=== PATIENT | female | born 1955 | race Caucasian/White ===

== ENCOUNTER 2024-12-31 07:41 | Emergency (ER) | payer MEDICARE, SELFPAY ==
[2024-12-31] VITALS (14 sets, daily range): BP systolic 97–140; BP diastolic 58–86; PULSE 76–79; RESP 16–30; O2SAT 94–99
--- NOTE | ~2024-12-31 | XR_ITS ---
Examination: XR chest 2V Clinical History: chest pain, palpitations Comparison: None Technique: PA and Lateral Findings: Heart size enlarged. Elevated right hemidiaphragm, associated basilar atelectasis. Mild left basilar atelectasis. No acute bony abnormality. IMPRESSION: 1. No definite acute cardiopulmonary findings. 2. Bibasilar atelectasis, but early airspace opacity not excluded. Reviewed, dictated and finalized at location [facility]
--- NOTE | 2024-12-31 07:43 | ECG_ITS ---
Test Date: 2024-12-31 07:46:01 Measurements Intervals [place] Rate: 76 P: 48 WA: 155 QRS: 14 QRSD: 157 T: 173 QT: 441 QTc: 496 Interpretive Statements SINUS RHYTHM LEFT BUNDLE BRANCH BLOCK Electronically Signed On 12-31-2024 10:55:16 NURSE SITTER by Ronald Burks D.O
--- NOTE | 2024-12-31 08:07 | ED.CHESTPAIN ---
HPI - Chest Pain General Chief Complaint: Chest Pain Stated Complaint: chest pain Time Seen by Provider: 12/31/24 07:45 History of Present Illness HPI narrative: This is a 69-year-old female with history of CAD status post CABG 10 days ago at [facility] who presents to the ED from rehab for AFib. Per EMS, patient woke up this morning and felt like her heart was racing and Rehab checked her heart rate and was in the 160s to 170s. She was given additional dose of metoprolol there but it did not break prompting her to be sent here for further evaluation. At this time, patient reports that she does feel much better. She believes that as she was rolling through the doors to the ER that she converted back to normal. She has otherwise been doing well in the postop period. She did not get her morning amiodarone dose yet. Denies any new chest pain, shortness of breath, nausea vomiting. Related Data Home Medications ?Medication ?Instructions ?Recorded ?Confirmed ?Last Taken ?Type acetaminophen 500 mg capsule 1,000 mg PO Q6H PRN pain 12/29/24 12/29/24 12/29/24 09:45 History albuterol sulfate 90 mcg/actuation 2 inh inhalation Q4H PRN shortness 12/29/24 12/29/24 Unknown History aerosol inhaler of breath or wheezing amiodarone 400 mg tablet 400 mg PO Q24H 12/29/24 12/29/24 12/29/24 History apixaban 5 mg tablet 5 mg PO BID 12/29/24 12/29/24 12/29/24 History clopidogrel 75 mg tablet (Plavix) 75 mg PO DAILY 12/29/24 12/29/24 12/29/24 History fluticasone furoate 100 1 inh inhalation HS 12/29/24 12/29/24 12/28/24 21:20 History mcg-vilanterol 25 mcg/dose inhalation powder (Breo Ellipta) fluticasone propionate 50 2 spray intranasal DAILY PRN 12/29/24 12/29/24 Unknown History mcg/actuation nasal allergy symptoms spray,suspension (24 Hour Allergy Relief) furosemide 40 mg tablet (Lasix) 40 mg PO DAILY 12/29/24 12/29/24 12/29/24 History methocarbamol 500 mg tablet 500 mg PO TID 12/29/24 12/29/24 12/29/24 History metoprolol tartrate 37.5 mg tablet 37.5 mg PO BID 12/29/24 12/29/24 12/29/24 History multivitamin (Daily Multi-Vitamin 1 tablet PO DAILY 12/29/24 12/29/24 12/29/24 History tablet) oxycodone 5 mg tablet 5 mg PO Q6H 12/29/24 12/29/24 12/29/24 10:00 History pantoprazole 40 mg tablet,delayed 40 mg PO QAM 12/29/24 12/29/24 12/29/24 History release potassium chloride 20 mEq 40 meq PO DAILY 12/29/24 12/29/24 Unknown History tablet,extended release(part/cryst) (Klor-Con M) rosuvastatin 20 mg tablet (Crestor) 20 mg PO QPM 12/29/24 12/29/24 12/28/24 21:08 History sennosides 8.6 mg capsule (senna) 17.2 mg PO BID 12/29/24 12/29/24 12/29/24 History Allergies Allergy/AdvReac Type Severity Reaction Status Date / Time venom-wasp Allergy Severe Swelling Verified 12/31/24 07:50 morphine AdvReac Severe Unresponsiv Verified 12/31/24 07:50 e JOSEPHINE Inhibitors AdvReac Mild Cough Verified 12/31/24 07:50 Review of Systems Review of Systems: Gen.: Denies fevers or chills Eyes: Denies eye pain or visual change ENT: Denies congestion Respiratory: Denies shortness of breath or cough CV: As per HPI GI: Denies abdominal pain nausea, emesis or diarrhea denies burning, urgency, frequency or hematuria Musculoskeletal: Denies back pain or muscle pain Neuro: Denies numbness, tingling, weakness or focal weakness Skin: Denies rash Except as documented, all other systems reviewed and negative [facility] Social History Social History Smoking packs per day: 0.5 Smoking cigarettes per day: 10.0 Years smoked: 20 Smoking pack-years: 10.00 Smoking status: Former smoker Tobacco type: cigarettes Second hand tobacco smoke exposure: Yes Smoking end date: 02/16/94 Alcohol intake: former Substance use: never Substance use type: does not use Lack of Transportation: No Lack of Food: Never True Current Housing: I Have Housing Concerned About Future Housing: No Difficulty Paying Gas/Electric Bills: No Difficulty Paying for Meds: No Currently Unemployed: No Education: Associate Degree Difficulty w/ Childcare or Family Care: No Spiritual care concerns: No Exam Narrative: APPEARANCE: No acute distress, nontoxic, resting in bed EYES: EOMI HEENT: Normocephalic, atraumatic, OMM RESPIRATORY: No respiratory distress Clear to auscultation bilaterally with no rhonchi wheezing or rales. CARDIOVASCULAR: Regular rate and rhythm without murmurs rubs or gallops. Sternotomy incision clean/dry/intact. ABDOMINAL: Soft, nontender, nondistended, no rebound or guarding MUSCULOSKELETAl: Moves all extremities. No clubbing, cyanosis or edema. NEURO: Awake and alert. Following commands, speech normal, no focal deficits SKIN:: Warm, dry. No rashes lesions or abrasions PSYCHIATRIC: Normal affect/mood, Course Vital Signs Vital signs: Vital Signs Pulse Rate 78 12/31/24 07:44 Respiratory Rate 20 12/31/24 07:44 Blood Pressure 119/66 12/31/24 07:44 Pulse Oximetry 94 12/31/24 07:44 Oxygen Delivery Room Air 12/31/24 07:44 Pulse Rate 78 12/31/24 11:29 Respiratory Rate 16 12/31/24 11:29 Blood Pressure 117/63 12/31/24 11:29 Pulse Oximetry 96 12/31/24 11:29 Oxygen Delivery Room Air 12/31/24 07:44 MDM - Chest Pain MDM Narrative Medical decision making narrative: 69-year-old female Presenting for AFib and palpitations. On initial evaluation patient was in no acute distress afebrile, hemodynamic stable. Differentials include but are not limited to: ACS, AFib, CHF Exacerbation, COPD exacerbation, PE, PNA, PTX, bronchitis, viral syndrome Notable exam findings: Sternotomy incision clean/dry/intact, heart in normal sinus rhythm I personally reviewed the patient's lab result. Notable lab findings: Leukocytosis at 17 which is stable from yesterday. Troponin elevated at 0.07 for Chest x-ray showed bibasilar atelectasis. I personally reviewed the patient's EKGs: 12/31/2024 at 7:46 a.m: Normal sinus rhythm rate of 76, left bundle-branch block, does not meet Sgarbossa criteria for ST-elevation. Given patient's recent cardiac surgery in elevated troponin at this time, I did discuss the case with Dr. Raymundo, cardiothoracic surgery at [place] who performed the patient's surgery, he felt comfortable with the patient's troponin at its current level especially given that she is not having any chest pain at this time. Patient remained in normal sinus rhythm. She was given her home dose of amiodarone as it was due this morning anyway. Patient was advised follow up with her cardiothoracic surgeon as scheduled. Patient was agreeable to this plan. Given strict return precautions. Medical Records Data Attestation: I reviewed the patient's medical records. Lab Data Attestation: I reviewed the patient's lab results. 12/31/24 07:57 12/31/24 07:57 Labs: Lab Results 12/31/24 Range/Units 07:57 WBC 17.5 H (4.5-10.0) K/mm3 RBC 3.00 L (4.2-5.4) M/mm3 Hgb 9.1 L (12.0-15.0) g/dL Hct 30.0 L (37.0-47.0) % MCV 100.0 (80-100) fl MCH 30.3 (26-34) pg MCHC 30.3 L (32-36) g/dl RDW 20.7 H (11.5-14.5) % Plt Count 355 (150-375) k/mm3 MPV 10.2 (7.4-10.4) fl Immature Gran % (Auto) 4.1 H (0-0.5) % Neut % (Auto) 75.1 H (45.5-73.1) % Lymph % (Auto) 10.9 L (18.3-44.2) % [place] % (Auto) 7.4 (2.6-8.5) % Eos % (Auto) 2.2 (0-4.4) % Baso % (Auto) 0.3 (0.2-1.2) % Lymph # (Auto) 1.90 (0.9-3.2) K/mm3 [place] # (Auto) 1.3 H (0.1-0.6) K/mm3 Eos # (Auto) 0.4 H (0-0.3) K/mm3 Baso # (Auto) 0.1 (0.0-0.1) K/mm3 Abs Immat Gran (auto) 0.72 H (0.00-0.031) K/mm3 Absolute Neuts (auto) 13.2 H (1.3-6.7) K/mm3 Absolute Nucleated RBC 0.020 H (0.0-0.012) K/mm3 Nucleated RBC % 0.1 (0.0-0.2) % PT 15.5 H (11.1-14.7) Seconds INR 1.2 APTT 35.5 (22.3-36.8) Seconds Sodium 134 L (137-145) mmol/L Potassium 4.2 (3.4-5.0) mmol/L Chloride 104 (98-107) mmol/L Carbon Dioxide 25 (22-30) mmol/L Anion Gap 5 (4-12) mmol/L BUN 20 H (7-17) mg/dL Creatinine 0.61 L (0.7-1.0) mg/dL Estim Creat Clear Calc 77 ml/min Estimated GFR > 60 (59 - ) Glucose 118 H (65-110) mg/dL Calcium 8.6 (8.4-10.2) mg/dL Magnesium 2.1 (1.6-2.3) mg/dL Total Bilirubin 1.7 H (0.2-1.3) mg/dL AST 35 (14-36) U/L ALT 20 (6-35) U/L Alkaline Phosphatase 81 (38-126) U/L Troponin I 0.074 H* (0.000-0.034) ng/mL Total Protein 6.3 (6.3-8.2) g/dL Albumin 3.3 L (3.5-5.1) g/dL Lipase 74 (23-300) U/L Imaging Data Radiologist's impression: Impressions Chest X-Ray 12/31/24 08:37 IMPRESSION: 1. No definite acute cardiopulmonary findings. 2. Bibasilar atelectasis, but early airspace opacity not excluded. ECG Data EKG #1: Attestation: I personally reviewed and interpreted this ECG as follows: ECG completion date: 12/31/24 ECG completion time: 07:46 Interpretation: Normal sinus rhythm rate of 76, left bundle-branch block, does not meet Sgarbossa criteria for ST-elevation Discharge Plan Discharge Clinical Impression: Elevated troponin A-fib Qualifiers: Atrial fibrillation type: paroxysmal Qualified Code(s): I48.0 - Paroxysmal atrial fibrillation Patient Disposition: Home Condition: Stable Instructions: Antibiotic Form, A-fib (Atrial Fibrillation) (ED) Additional Instructions: Continue to take amiodarone as prescribed. Follow-up with cardiothoracic surgery as scheduled. Return to the ED for any new or worsening symptoms. Patient Language: Algerian Prescriptions: No Action acetaminophen 500 mg capsule 1,000 mg PO Q6H PRN (Reason: pain) amiodarone 400 mg tablet 400 mg PO Q24H apixaban 5 mg tablet 5 mg PO BID clopidogrel [Plavix] 75 mg tablet 75 mg PO DAILY fluticasone furoate-vilanterol [Breo Ellipta] 100-25 mcg/dose blister with device 1 inh inhalation HS fluticasone propionate [24 Hour Allergy Relief] 50 mcg/actuation spray,suspension 2 spray intranasal DAILY PRN (Reason: allergy symptoms) Rx Instructions: administer into each nostril furosemide [Lasix] 40 mg tablet 40 mg PO DAILY methocarbamol 500 mg tablet 500 mg PO TID metoprolol tartrate 37.5 mg tablet 37.5 mg PO BID multivitamin [Daily Multi-Vitamin] Tablet 1 tablet PO DAILY pantoprazole 40 mg tablet,delayed release (DR/EC) 40 mg PO QAM potassium chloride [Klor-Con M20] 20 mEq tablet,ER particles/crystals 40 meq PO DAILY albuterol sulfate 90 mcg/actuation HFA aerosol inhaler 2 inh inhalation Q4H PRN (Reason: shortness of breath or wheezing) Patient Comments: q4-6hours as needed rosuvastatin [Crestor] 20 mg tablet 20 mg PO QPM senna 8.6 mg capsule 17.2 mg PO BID oxycodone 5 mg tablet 5 mg PO Q6H Follow-up/Referrals: PHYSICIAN NOT ON STAFF,NONSTAFF [Primary Care Provider]
[2024-12-31 08:14] LABS: Hematocrit 30.0 % (37.0-47.0); Hemoglobin 9.1 g/dL (12.0-15.0); Immature Granulocyte Percent A 4.1 % (0-0.5); Lymphocytes Absolute Auto 1.90 K/mm3 (0.9-3.2); Mean Corpuscular HGB Conc 30.3 g/dl (32-36); Mean Corpuscular Hemoglobin 30.3 pg (26-34); Mean Corpuscular Volume 100.0 fl (80-100); Nucleated Red Blood Cells Absolute Auto 0.020 K/mm3 (0.0-0.012); Nucleated Red Blood Cells Perc 0.1 % (0.0-0.2); Platelet Count Result 355 k/mm3 (150-375); Red Blood Count 3.00 M/mm3 (4.2-5.4); White Blood Count 17.5 K/mm3 (4.5-10.0)
[2024-12-31] MEDS: AMIODARONE HCL 200 MG TABLET 400 MG PO (08:24)
[2024-12-31 08:25] LABS: INR 1.2; Prothrombin Time 15.5 Seconds (11.1-14.7)
[2024-12-31 08:26] LABS: Alanine Aminotransferase 20 U/L (6-35); Albumin Level 3.3 g/dL (3.5-5.1); Alkaline Phosphatase 81 U/L (38-126); Anion Gap 5 mmol/L (4-12); Aspartate Amino Transferase 35 U/L (14-36); Bilirubin,Total 1.7 mg/dL (0.2-1.3); Blood Urea Nitrogen 20 mg/dL (7-17); Calcium 8.6 mg/dL (8.4-10.2); Carbon Dioxide 25 mmol/L (22-30); Chloride 104 mmol/L (98-107); Estimated CRCL calculation 77 ml/min; Estimated Glomerular Filt Rate > 60; Glucose 118 mg/dL (65-110); Lipase 74 U/L (23-300); Partial Thromboplastin Time 35.5 Seconds (22.3-36.8); Potassium 4.2 mmol/L (3.4-5.0); Sodium 134 mmol/L (137-145); Total Protein 6.3 g/dL (6.3-8.2)
[2024-12-31 08:46] LABS: Magnesium 2.1 mg/dL (1.6-2.3); Troponin I 0.074 ng/mL (0.000-0.034)
[2024-12-31] MEDS: oxyCODONE HCL (*CRX) 5 MG TAB IR PO (11:57)
== END 2024-12-31 12:21 ==
PROVIDERS: Emergency Provider Student in an Organized Health Care Education/Training Program
DX: I48.0 Paroxysmal atrial fibrillation (principal); R79.89 Other specified abnormal findings of blood chemistry; I25.10 Atherosclerotic heart disease of native coronary artery without angina pectoris; Z95.1 Presence of aortocoronary bypass graft; Z87.891 Personal history of nicotine dependence
CPT/HCPCS: 36415; 71046; 80053; 83690; 83735; 84484; 85025; 85610; 85730; 93005; 99284; A9270